=== PATIENT | male | born 1995 | race African-American/Black ===

== ENCOUNTER 2019-09-21 02:32 | Emergency (ER) | payer MEDICAID ==
[~2019-09-21] VITALS: Ht 170.2 cm; Wt 66.7 kg
[2019-09-21 03:35] VITALS: BP 108/66
[2019-09-21] MEDS ORDERED: HYDROcodone-ACET 10/325MG TAB PO ONE (04:45)
== END 2019-09-21 05:25 | disposition home or self-care (01) ==
LOC: ER 02:34
DX: M21.42 Flat foot [pes planus] (acquired), left foot (principal); Z88.6 Allergy status to analgesic agent
CPT/HCPCS: 73610